=== PATIENT | male | born 1965 | race Caucasian/White ===

== ENCOUNTER 2017-03-04 19:26 | Emergency (ER) | payer BC, OTHER ==
[~2017-03-04] VITALS: Ht 177.8 cm; Wt 78.5 kg
[2017-03-04 19:28] VITALS: Ht 177.8 cm; Wt 78.5 kg
[2017-03-04 19:41] VITALS: TEMP 98
[2017-03-04] MEDS ORDERED: SOD CHLORIDE 0.9% 1,000 ML IV STA (19:51)
[2017-03-04] MEDS ORDERED: LIDOCAINE/MYLANTA 40 ML BTL PO STA (19:51)
[2017-03-04] MEDS ORDERED: KETOROLAC 15 MG INJ IV STA (19:51)
[2017-03-04] MEDS ORDERED: BELLADONNA/PHENOBARBITAL TAB PO STA (19:51)
[2017-03-04] MEDS ORDERED: FAMOTIDINE 20 MG TAB PO STA (19:51)
[2017-03-04 20:34] LABS: BASOPHILS % 0.5 % (0.0-2.0); EOSINOPHILS # 0.1 10^3/ul (0.0-0.5); EOSINOPHILS % 2.4 % (0.0-7.0); HEMATOCRIT 43.8 % (42.0-52.0); HEMOGLOBIN 15.6 g/dl (14.0-18.0); LYMPHOCYTES # 2.1 10^3/ul (0.8-2.9); LYMPHOCYTES % 35.9 % (15.0-51.0); MEAN CORPUSCULAR HEMOGLOBIN 30.9 pg (29.0-33.0); MEAN CORPUSCULAR HGB CONC 35.6 g/dl (32.0-37.0); MEAN CORPUSCULAR VOLUME 86.7 fl (82.0-101.0); MEAN PLATELET VOLUME 10.5 fl (7.4-10.4); MONOCYTE # 0.6 10^3/ul (0.3-0.9); MONOCYTES % 9.7 % (0.0-11.0); NEUTROPHIL # 2.9 10^3/ul (1.6-7.5); NEUTROPHILS % 51.2 % (39.0-77.0); PLATELET COUNT 198 10^3/UL (140-415); RED BLOOD COUNT 5.05 10^6/ul (4.70-6.10); RED CELL DISTRIBUTION WIDTH 12.4 % (11.5-14.5); WHITE BLOOD COUNT 5.8 10^3/ul (4.8-10.8)
--- NOTE | 2017-03-04 20:38 | RADRPT ---
PROCEDURE: XR Chest. CLINICAL INDICATION: Shortness of breath. TECHNIQUE: Single frontal view. COMPARISON: None. FINDINGS: The lungs are clear. The heart size is normal. There is no pleural effusion. There is no pneumothorax. IMPRESSION: 1. Normal chest radiograph. RPTAT: QQ .Tate Brito MD, Date Time Electronically viewed and signed by .Tate Brito MD, on 03/04/2017 20:37 .R/
[2017-03-04 20:53] LABS: ALANINE AMINOTRANSFERASE 44 IU/L (13-69); ALBUMIN 4.2 g/dl (3.3-4.9); ALBUMIN/GLOBULIN RATIO 1.27; ALKALINE PHOSPHATASE 112 IU/L (42-121); ANION GAP 12 (8-16); ASPARTATE AMINO TRANSFERASE 22 IU/L (15-46); BILIRUBIN,INDIRECT 0.2 mg/dl (0-1.1); BILIRUBIN,TOTAL 0.2 mg/dl (0.2-1.3); BLOOD UREA NITROGEN 31 mg/dl (7-20); CALCIUM 9.9 mg/dl (8.4-10.2); CARBON DIOXIDE 26 mmol/L (21-31); CHLORIDE 101 mmol/L (97-110); CREATININE 1.11 mg/dl (0.61-1.24); GLUCOSE 301 mg/dl (70-220); POTASSIUM 4.1 mmol/L (3.5-5.1); SODIUM 135 mmol/L (135-144); TOTAL PROTEIN 7.5 g/dl (6.1-8.1)
[2017-03-04 21:06] LABS: TROPONIN-I < 0.012 ng/ml (0.00-0.12)
[2017-03-04] MEDS ORDERED: IBUP-1542 PO (21:22)
[2017-03-04] MEDS ORDERED: MAG355OR14 PO (21:22)
[2017-03-04 21:36] VITALS: BP 128/88; PULSE 77; RESP 22
--- NOTE | 2017-03-04 21:51 | ERD ---
ER Documentation Chief Complaint Date/Time DATE: 03/04/17 TIME: 21:45 Chief Complaint chest pain x 2 days pain increases on deep breathing HPI 51-year-old man with history of diabetes presents with sharp nonradiating nonexertional chest pain anteriorly and midline, lasting at maximum for "5 minutes". States the pain is intermittent multiple times a day for the last 2 days sometimes just lasting for about a minute to 2 minutes. He denies cough, no fevers or chills, no dizziness, no shortness of breath, no nausea, no headache or blurry vision. Patient denies previous episodes. Patient denies personal or family history of early coronary artery disease or sudden cardiac . ROS All systems reviewed and are negative except as per history of present illness. Medications Home Meds Active Scripts Mag Hydrox/Al Hydrox/Simeth (Maalox Advanced Suspension) 355 Ml Oral.susp, 2 TSP PO TID, #24 OZ Prov:MARIAELENA CAMPOVERDE MD 03/04/17 Ibuprofen* (Ibuprofen*) 600 Mg Tablet, 600 MG PO Q8 for PAIN AND/OR INFLAMMATION , #30 TAB Prov:MARIAELENA CAMPOVERDE MD 03/04/17 Allergies Allergies: Uncoded Allergies: nka (Allergy, Mild, 12/22/09) PMhx/Soc Diabetes mellitus History of Surgery: Yes (APPY) Anesthesia Reaction: No Hx Neurological Disorder: No Hx Respiratory Disorders: No Hx Cardiac Disorders: No Hx Psychiatric Problems: No Hx Miscellaneous Medical Probl: Yes (DM) Hx Alcohol Use: No Hx Substance Use: No Hx Tobacco Use: No Smoking Status: Never smoker FmHx Family History: No diabetes Physical Exam Vitals Vital Signs Date Time Temp Pulse Resp B/P Pulse Ox O2 Delivery O2 Flow Rate FiO2 03/04/17 21:36 77 22 128/88 99 Room Air 03/04/17 19:41 98.0 76 16 121/87 98 Room Air 03/04/17 19:28 97.1 84 20 138/87 99 Physical Exam GENERAL: Well-developed, well-nourished, well-hydrated, in no apparent distress , looks nontoxic in appearance HEENT: Moist mucous membranes, pink conjunctiva, no cervical spine tenderness or step-off deformities, no goiter, no jaundice or icterus, extraocular movements intact without pain. No submandibular induration, and no pharyngeal erythema NEURO: Alert and oriented 3, cranial nerves II through XII intact bilaterally, pupils equal round reactive to light, no focal deficits or facial asymmetry, sensation intact distally Strength 5/5 in upper and lower extremities bilaterally CARDIAC: Regular rate and rhythm, no murmurs rubs or gallops LUNGS: Clear bilaterally no wheezing crackles or stridor ABDOMEN: Soft nontender, no guarding, no rigidity, no rebound, no psoas sign no obturator sign. Normoactive bowel sounds SKIN: Warm and dry to touch, no abrasions, contusions, or hematomas, no lacerations, no ecchymosis, no target lesions, and without ulcers EXTREMITIES: No clubbing cyanosis or edema, calves are bilaterally symmetrical, no Homans sign, no popliteal cord sign. Distal pulses equal and bilateral PSYCH: Normal affect without agitation or irritability Result Diagram: 03/04/17200903/04/172009 Results 24 hrs Laboratory Tests Test 03/04/17 20:10 White Blood Count 5.810^3/ul Red Blood Count 5.0510^6/ul Hemoglobin 15.6g/dl Hematocrit 43.8% Mean Corpuscular Volume 86.7fl Mean Corpuscular Hemoglobin 30.9pg Mean Corpuscular Hemoglobin Concent 35.6g/dl Red Cell Distribution Width 12.4% Platelet Count 46512^3/UL Mean Platelet Volume 10.5fl Neutrophils % 51.2% Lymphocytes % 35.9% Monocytes % 9.7% Eosinophils % 2.4% Basophils % 0.5% Nucleated Red Blood Cells % 0.0/100WBC Neutrophils # 2.910^3/ul Lymphocytes # 2.110^3/ul Monocytes # 0.610^3/ul Eosinophils # 0.110^3/ul Basophils # 0.010^3/ul Nucleated Red Blood Cells # 0.010^3/ul Sodium Level 135mmol/L Potassium Level 4.1mmol/L Chloride Level 101mmol/L Carbon Dioxide Level 26mmol/L Anion Gap 12 Blood Urea Nitrogen 31mg/dl Creatinine 1.11mg/dl Glucose Level 301mg/dl Calcium Level 9.9mg/dl Total Bilirubin 0.2mg/dl Direct Bilirubin 0.00mg/dl Indirect Bilirubin 0.2mg/dl Aspartate Amino Transf (AST/SGOT) 22IU/L Alanine Aminotransferase (ALT/SGPT) 44IU/L Alkaline Phosphatase 112IU/L Troponin I < 0.012ng/ml Total Protein 7.5g/dl Albumin 4.2g/dl Globulin 3.30g/dl Albumin/Globulin Ratio 1.27 Lipase 92U/L Current Medications Medications (Trade) Dose Ordered Sig/Estrella Route PRN Reason Start Time Stop Time Status Last Admin Dose Admin Sodium Chloride (NS) 1,000 ml @ 1,000 mls/hr Q1H STAT IV 03/04/17 19:51 03/04/17 20:50 DC 03/04/17 20:13 Famotidine (Pepcid) 40 mg ONCE STAT PO 03/04/17 19:51 03/04/17 19:53 DC 03/04/17 20:13 Miscellaneous Medication (Gi Cocktail (2)) 40 ml ONCE STAT PO 03/04/17 19:51 03/04/17 19:53 DC 03/04/17 20:13 Belladonna/ Phenobarbital () 2 tab ONCE STAT PO 03/04/17 19:51 03/04/17 19:53 DC 03/04/17 20:13 Ketorolac Tromethamine (Toradol) 15 mg ONCE STAT IV 03/04/17 19:51 03/04/17 19:53 DC 03/04/17 20:13 Procedures/MDM IV line was established 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 Patient was afebrile. EKG performed, read by me revealed a normal sinus rhythm at 77 bpm, normal axis , narrow QRS complex, no concerning ST elevations or depressions noted. One AP view of the chest performed, read by me reveals no acute infiltrates, normal mediastinum, sharp costophrenic and cardiac borders, no air under the diaphragm. Otherwise unremarkable chest x-ray. I administered 1 L normal saline intravenously, Toradol 15 mg IV, GI cocktail 50 cc, famotidine 40 mg p.o. with good response. EKG #2 was performed about an hour after the first 1 revealing a normal sinus rhythm at 67 bpm, normal axis, narrow QRS complex, no concerning ST elevations or depressions noted. The patient's history, physical exam and clinical presentation is concerning for possible cardiogenic etiology and acute coronary syndrome. Based on the patient's clinical exam and history and risk factors, I have a much lower clinical concern for pulmonary embolism, acute aortic dissection, pneumothorax, pneumonia, cardiac tamponade HEART Score: 2 MACE Rate: 1.7 Shared Decision Making: We had a conversation regarding risk stratification, MACE rate, and the risks, benefits, alternatives of disposition planning options. Disposition planning: Patient will follow up with his primary care physician for continued outpatient management and referral to job counselor in the next couple days. He may require provocative testing by cardiology. CBC and electrolytes are normal, liver function tests are normal, troponin was negative. His blood sugar was elevated although he did not use his nightly diabetic medications yet. Currently the patient is asymptomatic and vital signs are normal, he feels well. Differential diagnoses considered, included but not limited to acute coronary syndrome, pulmonary embolism, aortic dissection, abdominal aortic aneurysm, sepsis, stroke, meningitis, encephalitis, pneumonia, appendicitis, cholecystitis , bowel obstruction, pyelonephritis, nephrolithiasis, cystitis, as well as metabolic, hematologic, and electrolyte abnormalities. As well as abscess, cellulitis, fractures, and dislocations. Patient feels much better at this time, and vital signs are normal, symptoms have improved. I did give strict instructions to return to the ED if symptoms continue or worsen, patient will otherwise follow-up with primary care physician. Patient understood instructions and agreed to plan. Disclaimer: Inadvertent spelling and grammatical errors are likely due to EHR/ dictation software use and do not reflect on the overall quality of patient care. Also, please note that the electronic time recorded on this note does not necessarily reflect the actual time of the patient encounter. Departure Diagnosis: Primary Impression: Chest pain Chest pain type: unspecified Qualified Code: R07.9 - Chest pain, unspecified type Additional Impression: Acute hyperglycemia Condition: Good Patient Instructions: Hyperglycemia (High Blood Sugar), Chest Pain, Uncertain Cause Referrals: TADEO HAYES MD (PCP) MARIAELENA CAMPOVERDE MD Mar 04, 2017 21:51
== END 2017-03-04 21:30 | disposition home or self-care (01) ==
LOC: E/R 19:26 → EDUNIT# 19:26 → E/R 21:30
DX: E11.65 Type 2 diabetes mellitus with hyperglycemia (principal)
CPT/HCPCS: 36415; 71010; 80053; 83690; 84484; 85025; 93005; 96374; J1885; J7030; Z7502; Z7610